=== PATIENT | male | born 1965 | race Caucasian/White ===

== ENCOUNTER 2023-06-10 12:11 | Emergency (ER) | payer OTHER ==
[~2023-06-10] VITALS: Ht 180.3 cm; Wt 86.2 kg
[2023-06-10 12:24] VITALS: BP_SYST 133; PULSE 79; RESP 16; TEMP 97.5; O2SAT 97
[2023-06-10] MEDS ORDERED: HYDR-3917 PO (15:23)
[2023-06-10 15:25] VITALS: BP_SYST 128; PULSE 80; RESP 18; TEMP 97.5; O2SAT 98
== END 2023-06-10 15:26 | disposition home or self-care (01) ==
LOC: SED 12:11
DX: S83.91XA Sprain of unspecified site of right knee, initial encounter (principal); S93.401A Sprain of unspecified ligament of right ankle, initial encounter; Z79.899 Other long term (current) drug therapy; V89.2XXA Person injured in unspecified motor-vehicle accident, traffic, initial encounter; Y93.89 Activity, other specified; Y92.89 Other specified places as the place of occurrence of the external cause; Y99.8 Other external cause status
CPT/HCPCS: 72125-TC; 72128; 72131; 73560; 99284